=== PATIENT | male | born 1940 | race African-American/Black ===

== ENCOUNTER → 2018-01-27 | Outpatient (CLI) | payer OTHER | END | disposition home or self-care (01) | LOC: RAD 08:26 | DX: D68.8 Other specified coagulation defects (principal) ==

== ENCOUNTER 2018-02-18 06:15 | Day surgery (SDC) | payer OTHER ==
[~2018-02-18 06:15] MED LIST: ADVAIR HFA 115/12 GM IH; ALENDRONATE SOD70 MG PO; BUSPIRONE HCL10 MG PO; GABAPENTIN600 MG PO; OMEPRAZOLE20 M1 PO; SIMVASTATIN20 MG PO; TRAZODONE HCL50 MG PO; VIT C-ROSE HIP500 MG PO; ZANAFLEX4 M1 PO; ZANTAC150 MG PO
== END 2018-02-18 11:08 | disposition home or self-care (01) ==
LOC: CIR.AMB 06:15
DX: M54.17 Radiculopathy, lumbosacral region (principal); M54.12 Radiculopathy, cervical region; M96.1 Postlaminectomy syndrome, not elsewhere classified

== ENCOUNTER 2019-07-07 05:10 | Day surgery (SDC) | payer OTHER ==
[~2019-07-07 05:10] MED LIST changes: +PLAVIX75 MG
== END 2019-07-07 10:30 | disposition home or self-care (01) ==
LOC: CIR.AMB 05:10
DX: M48.061 Spinal stenosis, lumbar region without neurogenic claudication (principal)